=== PATIENT | female | born 1985 | race Caucasian/White ===

== ENCOUNTER 2016-11-05 06:56 | Day surgery (SDC) | payer OTHER ==
[2016-11-01 14:41] VITALS: BMI 24.5
[2016-11-05] MEDS ORDERED: PROPOFOL 20 ML ONE ×2 (07:58→07:59)
[2016-11-05] MEDS ORDERED: MIDAZOLAM HCL 2 MG/2 ML SINGLE DOSE VIAL ONE (07:58)
[2016-11-05] MEDS ORDERED: ROCURONIUM BROMIDE 50 MG/5 ML VIAL ONE (07:58)
[2016-11-05] MEDS ORDERED: LIDOCAINE HCL/PF 2% SDV 5ML VIAL ONE (08:06)
[2016-11-05] MEDS ORDERED: DEXAMETHASONE SOD PHOSPHATE 4 MG/1 ML VIAL ONE (08:11)
[2016-11-05] MEDS ORDERED: SODIUM CHLORIDE 0.9% P/F 10 ML VIAL IJ ONE (08:24)
[2016-11-05] MEDS ORDERED: ceFAZolin SODIUM 1 GM VIAL ONE (08:24)
[2016-11-05] MEDS ORDERED: ceFAZolin SODIUM 1 GM VIAL IVPB ONE (08:25)
[2016-11-05] MEDS ORDERED: DESFLURANE GAS 240 ML BOTTLE IH ONE (08:42)
[2016-11-05] MEDS ORDERED: GLYCOPYRROLATE 0.2 MG/1 ML VIAL ONE (09:27)
[2016-11-05] MEDS ORDERED: NEOSTIGMINE METHYLSULFATE 0.5 MG/ML - 10 ML MDV ONE (09:28)
[2016-11-05] MEDS ORDERED: BUPIVACAINE HCL/PF 0.5% (5MG/ML) 10 ML VIAL IJ ONE (09:34)
[2016-11-05] MEDS ORDERED: PROMETHAZINE HCL 25 MG/1 ML VIAL IVPUSH PRN (09:52)
[2016-11-05] MEDS ORDERED: ONDANSETRON 4 MG/2 ML VIAL IVPUSH PRN (09:52)
[2016-11-05] MEDS ORDERED: LACTATED RINGERS SOLUTION 1,000 ML IV SCH (10:00)
[2016-11-05] MEDS ORDERED: oxyCODONE HCL 5 MG TABLET PO PRN (11:36)
[2016-11-05] MEDS ORDERED: oxyCODONE HCL 5 MG TABLET ONE ×2 (11:54→16:34)
[2016-11-05] MEDS ORDERED: ONDANSETRON 4 MG/2 ML VIAL ONE (14:29)
[2016-11-05 15:16] VITALS: TEMP 97.8
--- NOTE | 2016-11-05 15:32 | HP ---
Past Medical History - Primary Care Physician PCP:: Eddie Pepper - Admission Chief Complaint: 31yo p1 with enlarging right adnexal mass 5.3cm and episodes of right adnexal pain. History of Present Illness: 5.3cm right adnexal mass suspicious for dermoid tumor, previously 4cm in 2014, intermittent right adnexal pain. 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: Alzheimer's, CVA, Dementia, Migraine, Multiple Sclerosis, Peripheral Neuropathy, Parkinson's, Seizure, Syncope, TIA, Vertigo, Other Cardiovascular: No: AFIB, Aneurysm, Aortic Insufficiency, Aortic Stenosis, CAD, CHF, Deep Vein Thrombosis, HTN, Hyperlipdemia, WI, Mitral Insufficiency, Mitral Stenosis, Murmur, Pulmonary Hypertension, Other Pulmonary: No: Asthma, Bronchitis, Cancer, COPD, O2 Dependent, Pneumonia, Previously Intubated, Pulmonary Embolus, Pulmonary Fibrosis, Sleep Apnea, Other Gastrointestinal: No: Ascites, Cancer, Constipation, Crohn's Disease, Diverticulitis, Diverticulosis, Esophageal Varices, Gastritis, GERD, GI Bleed, Hemorrhoids, Hiatal Hernia, Inflamatory Bowel Disease, Irritable Bowel Disease, Pancreatitis, Peptic Ulcer Disease, Ulcerative Colitis, Other Hepatobiliary: No: Cirrhosis, Cholelithiasis, Cholecystitis, Choledocholithiasis , Hepatitis A, Hepatitis B, Hepatitis C, Other Renal/: No: Renal Failure, Renal Inusuff, BPH, Cancer, Hematuria, Hemodialysis , Neurogenic Bladder, Renal Calculi, UTI, Other Reproductive: No: Ectopic , Endometriosis, Fibroids, PID, Polycystic Ovary Syndrome, Postmenopausal, Other ...Para: 1 ...Term: 1 Heme/Onc: No: Anemia, B12 Deficiency, Bleeding Disorder, Cancer, Current Chemotherapy, Current Radiation Therapy, Hemochromatosis, Hypercoaguable State, Myeloproliferative Synd, Sickle Cell Disease, Sickle Cell Trait, Thrombocytopenia, Other Infectious Disease: No: AIDS, C-Diff, Herpes Zoster, HIV, MRSA, STD's, Tuberculosis, VREF, Other Psych: No: Addictions, Anxiety, Bipolar, Depression, Panic, Psychosis, Schizophrenia, Other Musculoskeletal: No: Bursitis, Chronic low back pain, Hemiparesis, Hemiplegia, Osteoarthritis, Paraplegia, Other Rheumatology: No: Fibromyalgia, Gout, Lupus, Rheumatoid Arthritis, Sarcoidosis, Vasculitis, Other ENT: No: Allergic Rhinitis, Sinusitis, Other Endocrine: No: [place]'s Disease, Zechariah's Disease, Diabetes Insipidus, Diabetes Mellitus, Hyperparathyroidism, Hyperthyroidism, Hypothyroidism, Osteopenia, SIADH, Other Dermatology: No: Basal Cell, Cellulitis, Eczema, Melanoma, Psoriasis, Squamous Cell, Other - Past Surgical History Past Surgical History: Yes: None Hx Myomectomy: No Hx Transabdominal Cerclage: No - Smoking History Smoking history: Never smoked Aproximately how many cigarettes per day: 0 - Alcohol/Substance Use Hx Alcohol Use: No History of Substance Use: reports: None - Social History Usual Living Arrangement: Yes: Alone ADL: Independent History of Recent Travel: No Home Medications - Allergies Allergies/Adverse Reactions: Allergies Allergy/AdvReac Type Severity Reaction Status Date / Time No Known Allergies Allergy Verified 11/05/16 07:24 - Home Medications Home Medications: Ambulatory Orders Oxycodone HCl/Acetaminophen [Percocet 5-325 mg Tablet -] 1 - 2 tab PO Q6H PRN # 20 tab MDD 8 11/05/16 Family Disease History - Family Disease History Family History: Denies Review of Systems - Review of Systems Constitutional: reports: No Symptoms Eyes: reports: No Symptoms HENT: reports: No Symptoms Neck: reports: No Symptoms Cardiovascular: reports: No Symptoms Gastrointestinal: reports: No Symptoms Genitourinary: reports: No Symptoms Breasts: reports: No Symptoms Reported Musculoskeletal: reports: No Symptoms Integumentary: reports: No Symptoms Neurological: reports: No Symptoms Endocrine: reports: No Symptoms Hematology/Lymphatic: reports: No Symptoms Psychiatric: reports: No Symptoms Pain Intensity: 0 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 Signs: Vital Signs Temperature 97.8 F 11/05/16 15:15 Pulse Rate 60 11/05/16 15:15 Respiratory Rate 20 11/05/16 15:15 Blood Pressure 102/68 11/05/16 15:15 O2 Sat by Pulse Oximetry (%) 98 11/05/16 11:00 Constitutional: Yes: Well Nourished, No Distress, Calm Eyes: Yes: WNL, Conjunctiva Clear HENT: Yes: WNL, Atraumatic, Normocephalic Neck: Yes: WNL, Supple, Trachea Midline Cardiovascular: Yes: WNL, Regular Rate and Rhythm Respiratory: Yes: WNL, Regular, CTA Bilaterally Gastrointestinal: Yes: WNL, Normal Bowel Sounds, Soft ...Rectal Exam: Yes: WNL Renal/: Yes: WNL Pelvis: Yes: WNL External Genitalia: Yes: Normal Internal Exam Deferred: No Vaginal Exam: Yes: Normal Cervix: Yes: Normal Uterus: Yes: Normal Adnexa: Normal: Left, Mass: Right Musculoskeletal: Yes: WNL Extremities: Yes: WNL Edema: No Integumentary: Yes: WNL Neurological: Yes: WNL, Alert, Oriented ...Motor Strength: WNL Psychiatric: Yes: WNL, Alert, Oriented Imaging - Results Ultrasound: Report Reviewed Assessment/Plan 31yo P1 admitted for surgical sterilization. The pt is admitted for laparoscopic right ovarian cystectomy. We had discussed the risks, benefits, alternatives of surgery at length including but not limited to laparotomy, oophorectomy, pain, infection, bleeding, scarring, perforation, amenorrhea, infertility, hysterectomy, injury to surrounding/underlying organs or structure , need for additional surgery to repair/treat any complications, etc. The patient verbalized understanding and requested to proceed with surgery. I emphasized that all surgeries have risks and no guarantees can be provided.
--- NOTE | 2016-11-05 15:48 | OP ---
Operative Note - Note: Operative Date: 11/05/16 Pre-Operative Diagnosis: right adnexal mass. pelvic pain Operation: Laparoscopic right ovarian cystectomy Findings: Large right ovarian endometrioma that was densely adherent to right pelvic sidewall, right Fallopian tube torsion. Post-Operative Diagnosis: Same as Pre-op Surgeon: Eddie Pepper Dinkey Engine Firer: Justin Rothman Anesthesiologist/TRACK SWEEPER: Liu Quezada Anesthesia: General Specimens Removed: Right ovarian endometrioma Estimated Blood Loss (mls): 10 Drains & Tubes with Location: Valdes cath Drains, Volume Out (mls): 200 Blood Volume Replaced (mls): 0 Fluid Volume Replaced (mls): 600 Operative Report Dictated: Yes
[2016-11-05 17:47] VITALS: BP 117/63; PULSE 76
--- NOTE | 2016-11-06 19:23 | OP ---
DATE OF OPERATION: 11/05/2016 PREOPERATIVE DIAGNOSIS: Right adnexal pelvic mass, pelvic pain. POSTOPERATIVE DIAGNOSIS: Right adnexal pelvic mass consistent with endometrioma, right fallopian tube torsion, pelvic pain. SURGEON: Eddie Pepper MD DISTRIBUTION ENGINEERING TECHNOLOGIST: Justin Rothman MD JUSTIFICATION FOR DISTRIBUTION ENGINEERING TECHNOLOGIST: Surgical complexity and requirement for safe surgery. ANESTHESIOLOGIST: Liu Quezada MD ANESTHESIA: General endotracheal. COMPLICATIONS: None. IV FLUIDS: 600 mL. URINE OUTPUT: 200 mL of clear urine at the end of the procedure. ESTIMATED BLOOD LOSS: 10 mL. PATHOLOGY: Right ovarian endometrioma. FINDINGS: Examination under anesthesia revealed a slightly enlarged and slightly retroverted uterus. A right adnexal mass was palpable. During laparoscopy, a slightly enlarged uterus was observed. The left ovary and fallopian tube were within normal limits. The right fallopian tube was adherent and twisted around a large right ovarian mass. The mass itself was very densely adherent to the right pelvic sidewall. During surgery, the right adnexal mass was noted to contain chocolate-colored old blood and is consistent with endometrioma. DESCRIPTION OF PROCEDURE: The patient was met preoperatively. Risks, benefits, and alternatives of surgery were discussed in detail. All questions were answered. The patient was then brought to the OR with the IV running. She was placed on the surgical table in a supine position. The general endotracheal anesthesia was achieved without difficulty. The patient was then placed in a dorsal lithotomy position using adjustable Kieran stirrups. She was examined under anesthesia with the findings as described above. The patient was then prepped and draped in the usual sterile fashion. A time-out procedure was conducted as per standard protocol. A Valdes catheter was then inserted inside the bladder and left to drain to gravity. A HUMI uterine manipulation was introduced inside the uterus with a sterile technique. The surgeons then regloved and proceeded with the laparoscopy. A 5-mm infraumbilical incision was made with a knife. A Veress needle was introduced into the peritoneal cavity without complications. The pneumoperitoneum was produced without complications and intra-abdominal pressure not exceeding 20 mmHg. The Veress needle was then removed, and a 5-mm Optiview trocar was introduced inside the umbilical incision. This trocar was used for laparoscopic camera. A second 5-mm incision was made with a knife in the right lower quadrant. A 5-mm trocar was introduced through the right lower quadrant incision under direct visualization and without complications. A 10-mm incision was made in the left lower quadrant, and an 11-mm trocar was introduced in the left lower quadrant incision with no complication and under direct visualization. The right fallopian tube appeared to be densely adherent to the right ovarian mass. The right fallopian tube was also twisted consistent with the right fallopian tube torsion. The right ovary contained a large ovarian mass. The right ovary and mass were densely adherent to the right pelvic sidewall. The patient was placed in Trendelenburg position. The bowel was moved cephalad to better visualize the operative site. The right ureter was found and traced from the pelvic brim along the right pelvic sidewall and its passage underneath the cardinal ligament. The right ovary was then dissected away from the right pelvic sidewall using laparoscopic instruments and cautery. The right ureter was noted to be intact and unaffected. The right fallopian tube was then also dissected away from the right ovary and ovarian mass. The right ovarian mass was then excised from the right ovary. In the course of right ovarian mass dissection, the mass was ruptured, and it was noted to contain chocolate-appearing fluid and was consistent with right ovarian endometrioma. The right ovarian endometrioma was excised without complications. It was placed inside the Endobag and retrieved from the patient. The right ovary was then copiously irrigated. The cautery was used to achieve hemostasis. The cautery was used judiciously to preserve and maintain as much ovarian tissue as possible. Good hemostasis was obtained. Most of the patient's ovary remained intact. The right ovary was once again irrigated. A small amount of bleeding was noted from the right pelvic sidewall. At that point, the decision was not to use cautery due to the proximity of the right ureter. Surgicel was applied to the right pelvic sidewall. Once this was completed, excellent hemostasis was noted. Survey of the abdomen and pelvis revealed no further pathology. The visualized portions of the bowel, liver, stomach, and gallbladder appeared to be normal. Once again, the attention was turned to the right ovary and pelvic sidewall. Good hemostasis was assured. The left lower quadrant incision was then closed using a 2-0 Vicryl suture for the fascia. Once this was accomplished, pneumoperitoneum was reduced. Once again, the attention was turned to the right ovary and the right pelvic sidewall. Good hemostasis was noted. All of the instruments were removed from the patient. The pneumoperitoneum was reduced. The abdominal incisions were closed using a 4-0 Biosyn suture for the skin. Sponge, lap, and instrument counts were correct. The patient was returned to supine position. The Valdes catheter and HUMI uterine manipulation were removed. The patient was transferred to recovery room awake and in stable condition. Madison MCELROY/[id number]
--- NOTE | 2016-11-08 13:33 | PATH ---
Surgical Pathology Report Patient Name: PETTY WHITTINGTON [facility]. Rec. #: [id number] /Age/Gender: 1985 (Age: 31) / F Account: [id number] Location: [facility] SURGICAL Taken: 11/05/2016 Received: 11/05/2016 Reported: 11/08/2016 Physicians: Eddie Pepper M.D. Specimen(s) Received RIGHT CYST WALL Clinical History Right ovarian cyst, pelvic pain Final Diagnosis OVARY, RIGHT, CYST WALL, CYSTECTOMY: CONSISTENT WITH ENDOMETRIOMA. Electronically Signed Romero Torres M.D. Gross Description Received in formalin labeled "right cyst wall" is a 2.9 x 2.0 x 0.9 cm aggregate of lane-oseguera, irregular portions of soft tissue, consistent with a disrupted ovarian cyst. The larger portions are sectioned and the specimen is entirely submitted in 3 cassettes. /11/05/2016 saudi/11/05/2016
== END 2016-11-05 18:15 | disposition home or self-care (01) ==
LOC: JASU-SURG 06:56
PROVIDERS: ATTEND Obstetrics & Gynecology
PROC: 0UB04ZZ Excision of Right Ovary, Percutaneous Endoscopic Approach (ICD-10-PCS; principal; 2016-11-05 08:00)
DX: N80.1 Endometriosis of ovary (principal); N83.521 Torsion of right fallopian tube
CPT/HCPCS: 84703; 88305-TC; 94760